=== PATIENT | female | born 1970 | race Caucasian/White ===

== ENCOUNTER → 2024-01-26 08:55 | Outpatient (REF) | payer OTHER, SELFPAY | LOC: HWWDC 08:55 | PROVIDERS: ATTENDING PHYSICIAN Obstetrics & Gynecology; FAMILY PHYSICIAN Internal Medicine | DX: Z12.31 Encounter for screening mammogram for malignant neoplasm of breast (principal) | CPT/HCPCS: 77063; 77067 ==

== ENCOUNTER → 2024-08-27 06:25 | Day surgery (SDC) | payer OTHER, SELFPAY ==
[2024-08-27 08:43] VITALS: BMI 21.1
[2024-08-27 08:44] VITALS: BMI 21.1
[2024-08-27 09:04] VITALS: BP 134/77
[2024-08-27] MEDS: NORMOSOL-R/PLASMALYTE-A 1000 IV (09:05)
[2024-08-27 12:47] VITALS: BP 124/78; BP 134/67
[2024-08-27 12:48] VITALS: BP 124/78
[2024-08-27 13:00] VITALS: BP 134/85
[2024-08-27 13:15] VITALS: BP 120/76
[2024-08-27 13:34] VITALS: BP 118/71
== END ==
LOC: SDS 06:25
PROVIDERS: ATTENDING PHYSICIAN Obstetrics & Gynecology
DX: D25.9 Leiomyoma of uterus, unspecified (principal); N92.4 Excessive bleeding in the premenopausal period; N85.8 Other specified noninflammatory disorders of uterus
CPT/HCPCS: 58558; 88305

== ENCOUNTER → 2025-01-26 08:51 | Outpatient (REF) | payer OTHER, SELFPAY | LOC: HWWDC 08:51 | PROVIDERS: ATTENDING PHYSICIAN Obstetrics & Gynecology; FAMILY PHYSICIAN Internal Medicine | DX: Z12.31 Encounter for screening mammogram for malignant neoplasm of breast (principal) | CPT/HCPCS: 77063; 77067 ==